=== PATIENT | female | born 1950 | race African-American/Black ===

== ENCOUNTER 2017-05-15 09:28 | Emergency (ER) | payer OTHER ==
[2017-05-15 09:51] VITALS: BP 151/54; PULSE 70; TEMP 97.6; BMI 43.7
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
[2017-05-15] MEDS ORDERED: IBUPROFEN 600 MG TABLET (FP) PO ONE ×2 (11:06→11:13)
== END 2017-05-15 12:02 | disposition home or self-care (01) ==
LOC: JER 09:28 → JERFT 09:28
DX: M79.661 Pain in right lower leg (principal); V03.99XA Pedestrian with other conveyance injured in collision with car, pick-up truck or van, unspecified whether traffic or nontraffic accident, initial encounter; Y93.89 Activity, other specified; Y92.410 Unspecified street and highway as the place of occurrence of the external cause; F17.210 Nicotine dependence, cigarettes, uncomplicated; E66.01 Morbid (severe) obesity due to excess calories; Z71.3 Dietary counseling and surveillance
CPT/HCPCS: 73562-TC-RT-FY; 73610-TC-RT-FY; 73630-TC-RT-FY; 99282-25